=== PATIENT | male | born 1985 | race Caucasian/White ===

== ENCOUNTER 2020-01-10 11:13 | Outpatient (REF) | payer BC, SELFPAY ==
[2020-01-10 12:44] LABS: Hematocrit 48.3 % (42-52); Hemoglobin 16.4 g/dl (14.0-18.0); Mean Corpuscular Hemoglobin 30.9 pg (27.0-33.0); Mean Corpuscular Volume 91.1 fL (80-98); Mean Platelet Volume 10.2 fL (9.4-12.4); Platelet Count 220 X10*3/uL (160-400); Red Cell Distribution Width 12.4 % (11.0-16.0); White Blood Count 5.3 X10*3/uL (4.8-10.8)
[2020-01-10 13:23] LABS: Alanine Aminotransferase 67 U/L (0-40); Albumin Level 4.6 g/dL (3.5-5.0); Alkaline Phosphatase 70 U/L (39-117); Anion Gap 13 (12-20); Aspartate Amino Transferase 41 U/L (5-37); Bilirubin Total 0.9 mg/dL (0.0-1.0); Blood Urea Nitrogen 18 mg/dL (9-16); Calcium 9.2 mg/dL (8.4-10.2); Carbon Dioxide 26 mmol/L (22-29); Chloride 105 mmol/L (96-108); Estimated Glomerular Filt Rate > 60; Glucose Random 92 mg/dL (60-115); Potassium 4.1 mmol/l (3.3-5.1); Sodium 140 mmol/L (135-145); Total Protein 7.2 g/dL (6.5-8.0)
[2020-01-10 14:20] LABS: Erythrocyte Sedimentation Rate 2 MM/HR (0-15)
[2020-01-11 17:46] LABS: Lyme Abs Screen <0.90 index
== END 2020-01-10 11:14 | disposition home or self-care (01) ==
LOC: HO.MANLDS 11:13
PROVIDERS: PCP Physician Assistant; Visit Provider Physician Assistant
DX: R59.0 Localized enlarged lymph nodes (principal)
CPT/HCPCS: 36415; 80053; 85027; 85652; 86140; 86618

== ENCOUNTER 2020-01-21 09:18 | Outpatient (REF) | payer BC, SELFPAY ==
[2020-01-21 11:57] LABS: Alanine Aminotransferase 52 U/L (0-40); Albumin Level 4.5 g/dL (3.5-5.0); Alkaline Phosphatase 67 U/L (39-117); Amylase 74 U/L (28-100); Aspartate Amino Transferase 41 U/L (5-37); Bilirubin Direct 0.3 mg/dL (0.0-0.5); Bilirubin Total 0.7 mg/dL (0.0-1.0); Lipase 28 U/L (8-78); Total Protein 7.1 g/dL (6.5-8.0)
== END 2020-01-21 09:19 | disposition home or self-care (01) ==
LOC: HO.MANLDS 09:18
PROVIDERS: PCP Physician Assistant; Visit Provider Physician Assistant
DX: R94.5 Abnormal results of liver function studies (principal)
CPT/HCPCS: 80076; 82150; 83690